=== PATIENT | male | born 1960 | race Caucasian/White ===

== ENCOUNTER → 2020-07-04 | Outpatient (CLI) | payer OTHER ==
--- NOTE | 2020-07-04 12:39 | RAD ---
PROCEDURE: SHOULDER 2+V RIGHT STUDY DATE: 07/04/2020 CLINICAL INDICATION / HISTORY: Reason: RIGHT SHOULDER PAIN / Spl. Instructions: / History: . TECHNIQUE: AP internal and external rotation views with a Y- view were obtained. COMPARISON: None FINDINGS: No fracture, dislocation or bone destruction is identified. There are mild degenerative changes at the right AC joint. No calcifications are seen in relation to the rotator cuff insertion. IMPRESSION: No acute osseous abnormality. Electronically signed by: Devika Sarmiento MD (07/04/2020 12:36 PM) [id number]
== END | disposition home or self-care (01) ==
LOC: DXRAD 09:20
PROVIDERS: ATTEND Physician Assistant
DX: M19.011 Primary osteoarthritis, right shoulder (principal)
CPT/HCPCS: 73030